=== PATIENT | female | born 1950 | race Caucasian/White ===

== ENCOUNTER → 2025-06-17 | Outpatient (CLI) | payer MEDICARE, OTHER ==
--- NOTE | 2025-06-18 08:39 | HMCIMG ---
EXAM: MRCP Abdomen without Intravenous Contrast. CLINICAL HISTORY: Pain. TECHNIQUE: Multisequence, multiplanar magnetic resonance images of the abdomen. CONTRAST: None. COMPARISON: None provided. FINDINGS: MRCP: Multiple calculi noted in the gallbladder, largest measuring approximate 1.5 cm. Multiple calculi noted in the mid common bile duct, largest measuring approximately 6.3 mm. The common bile duct is mildly dilated measuring approximately 8 mm in maximum diameter. Mild intrahepatic biliary dilatation noted. The cystic duct is unremarkable. Normal pancreatic duct. No biliary strictures are present. There is no gross abnormality appreciated within the visualized liver, pancreas, spleen, or adrenals. Multiple cysts of variable sizes in bilateral kidneys largest in the interpolar region of the right kidney measuring approximately 4.1 x 3.6 cm. Diverticulum measuring approximately 2 cm along the medial aspect of the D2 segment of the duodenum. Small hiatus hernia noted. Severe lumbar levoscoliosis. IMPRESSIONS: Cholelithiasis and choledocholithiasis with mild intrahepatic biliary dilatation. Multiple cysts of variable sizes in bilateral kidneys. Possibly autosomal dominant polycystic kidney disease. Diverticulum measuring approximately 2 cm along the medial aspect of the D2 segment of the duodenum. Small hiatus hernia. /[place]
== END | disposition home or self-care (01) ==
LOC: RAH 07:37
PROVIDERS: ATTEND Internal Medicine Gastroenterology
DX: K80.70 Calculus of gallbladder and bile duct without cholecystitis without obstruction (principal); K44.9 Diaphragmatic hernia without obstruction or gangrene; N28.1 Cyst of kidney, acquired; K57.30 Diverticulosis of large intestine without perforation or abscess without bleeding; R94.5 Abnormal results of liver function studies; M41.86 Other forms of scoliosis, lumbar region
CPT/HCPCS: 74181